=== PATIENT | female | born 1995 | race Caucasian/White ===

== ENCOUNTER 2017-06-30 22:00 | Emergency (ER) | payer MEDICAID, SELFPAY ==
[2017-06-30 22:01] VITALS: BP 146/85; PULSE 127; RESP 16; TEMP 36.6; O2SAT 100; BMI 26.2
--- NOTE | 2017-06-30 22:17 | ED.VISSUMM ---
- ER Visit Summary Date of Service: 06/30/17 Chief Complaint: [] Sore throat History of Present Illness: The patient is a 21 F complaining of sore throat since yesterday. The patient states she has been using symptom management but came in to make sure she did not have strep throat. Current severity is mild to moderate. Physical Examination: [] Vital signs reviewed General: Well-nourished well-developed Head: Normocephalic atraumatic Eyes: Pupils equal round and reactive to light extraocular movements intact ENT: TMs clear no hemotympanum no trauma. Pharynx shows very mild erythema. Tonsils have been resected Neck: Nontender full range of motion Cardiovascular: Regular rate rhythm no murmurs normal S1-S2 Respiratory: No distress clear to auscultation bilaterally chest nontender Abdomen: Soft nontender nondistended normal bowel sounds no masses Back: Nontender no CVA tenderness Extremities: Nontender active range of motion ?4 extremities no trauma Skin: Normal color no trauma Neuro alert oriented cranial nerves II through XII intact normal strength sensation reflexes Test Results: [] Emergency Department Course and Treatment: [] Given ibuprofen. Rapid strep positive. Given amoxicillin. We will continue course at home. Treatment Plan: [] Disposition: [] Impression: [] Strep pharyngitis This note was generated with [employer] dictation software. It may contain incorrect words, spelling, and punctuation that were not noted in review of the chart prior to signing ED Disposition - Plan for ED Patient: Chief Complaint: Sore Throat Referrals: Care Physician,No Primary [Primary Care Provider] -
[2017-06-30] MEDS: Ibuprofen 400 MG Tablet 800 MG PO (22:25)
--- NOTE | 2017-06-30 22:45 | ED.DEP ---
ED Disposition - Plan for ED Patient: Disposition: Home or Assisted Living Chief Complaint: Sore Throat Instructions: ED Strep Pharyngitis Conf Prescriptions: Amoxicillin 500 mg PO TID #30 tab Referrals: Care Physician,No Primary [Primary Care Provider] - Anthony Hidalgo DO [NON CLINICAL AFFILIATE] -
[2017-06-30] MEDS: AMOXICILLIN 500 MG CAPSULE PO (22:50)
--- NOTE | 2017-06-30 22:53 | ED.RN ---
DISCHARGE INSTRUCTIONS GIVEN TO AND REVIEWED WITH PATIENT, PATIENT DENIES QUESTIONS OR CONCERNS AND VOICES UNDERSTANDING OF DISCHARGE INSTRUCTIONS. PT AMBULATES OUT OF ROOM WITHOUT DIFFICULTY.
== END 2017-06-30 22:54 | disposition home or self-care (01) ==
PROVIDERS: Emergency Provider Emergency Medicine
DX: J02.0 Streptococcal pharyngitis (principal)
CPT/HCPCS: 87077; 87880; 99283

== ENCOUNTER → 2017-10-27 21:50 | Outpatient (CLI) | payer MEDICAID, SELFPAY ==
[2017-10-31 10:29] LABS: HPV Reflexed? NOT INDICATED
== END ==
PROVIDERS: Visit Provider Obstetrics & Gynecology
DX: Z12.4 Encounter for screening for malignant neoplasm of cervix (principal)
CPT/HCPCS: 88175; G0145

== ENCOUNTER → 2018-03-10 13:34 | Outpatient (CLI) | payer MEDICAID, SELFPAY ==
--- NOTE | 2018-03-10 13:38 | US_ITS ---
STUDY: ULTRASOUND BREAST - LEFT REASON FOR EXAM: Female, 22 years old. Pain in the left breast. TECHNIQUE: Axial and longitudinal images of the LEFT breast were performed with a high resolution ultrasound transducer. COMPARISON: None. FINDINGS: LEFT Breast: The inferior aspect of the left breast was examined by ultrasound. There is homogeneous fibroglandular tissue. No solid or cystic mass lesion is seen. US/Breast Limited Unilateral IMPRESSION: Unremarkable sonographic examination of the inferior aspect of the left breast. ASSESSMENT CATEGORY: BIRADS Category 1: Negative. A letter regarding these results will be sent to the patient by the facility within 30 days. Electronically Signed: Tolu De La Paz MD at 14:27 EST Tel [phone], Service support ,
== END ==
PROVIDERS: Visit Provider Obstetrics & Gynecology
DX: N64.4 Mastodynia (principal)
CPT/HCPCS: 76642

== ENCOUNTER → 2018-09-09 | Outpatient (CLI) | payer MEDICAID, SELFPAY ==
[2018-09-09 19:09] LABS: Chlamydia Trachomatis by PCR Negative (Negative); Neisserai gonorrhoeae by PCR Negative (Negative); Probe Check PASS; Sample Adequacy Control PASS; Specimen Processing Control PASS
== END | disposition home or self-care (01) ==
LOC: LABSPEC 15:04
PROVIDERS: Visit Provider Obstetrics & Gynecology
DX: Z11.3 Encounter for screening for infections with a predominantly sexual mode of transmission (principal)
CPT/HCPCS: 87491; 87591

== ENCOUNTER → 2018-10-11 | Outpatient (CLI) | payer MEDICAID, SELFPAY ==
[2018-10-11 13:21] LABS: Color, Urine Yellow (Yellow); Glucose, Dipstick Normal (Normal); Ketone-Dipstick Negative (Negative); Leukocyte Esterase-Dipstick Negative /ul (Negative); Nitrite-Dipstick Negative (Negative); Occult Blood-Urine Negative /ul (Negative); Protein-Dipstick Negative (Negative); Urine Bilirubin Dipstick Negative (Negative); Urine Clarity Clear (Clear); Urine Urobilinogen Normal (Normal)
[2018-10-11 13:34] LABS: Amphetamine Urine VISTA NEGATIVE (<1000 ng/mL); Barbiturate Urine VISTA NEGATIVE (< 200 ng/mL); Benzodiazepine Urine VISTA NEGATIVE (< 200 ng/mL); Cocaine Urine VISTA NEGATIVE (< 300 ng/mL); Ecstacy Urine VISTA NEGATIVE (< 500 ng/mL); Methadone Urine VISTA NEGATIVE (< 300 ng/mL); PCP Urine VISTA NEGATIVE (< 25 ng/mL); THC Urine VISTA POSITIVE (< 50 ng/mL); Vista UDS pH Range 6
[2018-10-11 16:26] LABS: Absolute Lymphocyte Count 2.05 X10^3/ul (0.83-4.51); Absolute Neutrophil Count 3.1 X10^3/uL (2.0-7.7); Basophil# 0.01 X10^3/uL; Basophil% 0.2 % (0-1); Eosinophil# 0.24 X10^3/uL; Eosinophils% 4.1 % (0-5); Hematocrit 43.7 % (37-47); Hemoglobin 14.6 g/dl (12.0-15.0); Lymphocyte # 2.05 X10^3/ul (4.0); Lymphocyte % 35.2 % (19-41); Mean Corp Hgb Conc 33.4 g/gl (32-36); Mean Corpuscular Volume 83.7 fL (81-99); Mean Platelet Vol. 10.8 fl (6.2-12.0); Monocyte# 0.47 X10^3/uL; Monocyte% 8.1 % (0-10); Neutrophil # 3.05 X10^3/uL (2.7-7.7); Neutrophil % 52.2 % (47-70); Platelet Count 208 K/mm3 (150-450); RBC Distribution Width CV 12.7 % (11.6-14.6); RBC Distribution Width SD 38.4 fl (35.1-43.9); Red Blood Count 5.22 M/mm3 (4.2-5.4); White Blood Count 5.8 K/mm3 (4.4-11.0)
[2018-10-11 16:28] LABS: POSITIVE COUNT NO; POSITIVE DIFFERENTIAL NO; POSITIVE MORPHOLOGY NO
[2018-10-11 17:38] LABS: Free T3 2.7 pg/mL (2.18-3.98); T4 Free Direct 1.05 ng/dL (0.76-1.46)
[2018-10-12 09:37] LABS: HIV - WCH Non-Reactive (Nonreactive); Hepatitis B Surface Antigen Non-Reactive (Nonreactive); Hepatitis C Antibody Non-Reactive (Nonreactive)
[2018-10-15 02:57] LABS: Prenatal RPR NONREACTIVE (NONREACTIVE)
== END | disposition home or self-care (01) ==
LOC: WOBLAB 11:36
PROVIDERS: Visit Provider Obstetrics & Gynecology
DX: O28.8 Other abnormal findings on antenatal screening of mother (principal); R94.6 Abnormal results of thyroid function studies; Z3A.00 Weeks of gestation of pregnancy not specified
CPT/HCPCS: 36415; 80307; 81002; 84439; 84443; 84481; 85025; 86703; 86762; 86803; 87340

== ENCOUNTER 2018-12-11 16:56 | Emergency (ER) | payer MEDICAID, SELFPAY ==
[2018-12-11 16:58] VITALS: BP 127/66; PULSE 96; RESP 22; TEMP 36.2; O2SAT 98; BMI 28.9
[2018-12-11 17:04] VITALS: O2SAT 98
[2018-12-11 18:30] VITALS: PULSE 92; RESP 18
[2018-12-11] MEDS: Albuterol 2.5 MG/3 ML VIAL.NEB. INHALATION (18:32)
--- NOTE | 2018-12-11 18:40 | RAD_ITS ---
STUDY: X-RAY CHEST REASON FOR EXAM: Female, 23 years old. Cough and shortness of breath, TECHNIQUE: PA and lateral views of the chest. Patient was shielded. COMPARISON: None. FINDINGS: The lungs are clear and expanded. There is no demonstrated pleural abnormality. Normal size heart. Normal mediastinum and ángel. Normal visualized pulmonary arteries. Normal visualized aortic arch and descending thoracic aorta. Normal visualized thoracic spine. Normal visualized ribs, clavicles, and shoulders. There is no demonstrated abnormality of the visualized soft tissue structures of the upper abdomen. RAD/Chest PA and Lateral IMPRESSION: Normal x-ray examination of the chest. Electronically Signed: Matthew Driver MD ([place]) at 18:54 EDT , Service support ,
[2018-12-11 19:48] VITALS: BP 118/60; PULSE 89; RESP 14; O2SAT 98
--- NOTE | 2018-12-11 20:30 | ED.DCSUM_ITS ---
- ER Visit Summary Date of Service: 12/11/18 Chief Complaint: Cough History of Present Illness: The patient is a 23 F who presents with a cough that is been getting worse over the past 4 days. Patient states she has sharp burning pain in her chest with coughing. Patient states she has had some nasal congestion and headache. Patient states she has been having some nausea and vomiting. Patient denies any sputum production. Patient states she does get short of breath after coughing episode. Patient states this resolves after a few minutes. Patient is approximately 20 weeks . Physical Examination: Vital signs are stable. Patient is afebrile. Patient is in no acute distress. Oral mucosa is pink and moist. Neck is supple. Trachea is midline. There is no JVD noted. Heart was regular rate and rhythm. Lungs are slightly diminished bilaterally. Abdomen is soft and nontender. Cranial nerves II through XII are intact. There are no focal motor or sensory deficits noted. Test Results: PA and lateral chest x-ray was obtained. There is no acute infiltrate noted. This was interpreted by the radiologist myself. Emergency Department Course and Treatment: Patient was given an albuterol aerosol here. Patient felt better on reevaluation. Patient was given a prescription for an albuterol inhaler. Patient was instructed to follow-up with her primary care physician and [facility] in 5 to 7 days. Patient understood and was agreeable with the plan. All questions were answered. Disposition: Discharge home Impression: Viral upper respiratory infection This note was generated with [employer] dictation software. It may contain incorrect words, spelling, and punctuation that were not noted in review of the chart prior to signing ED Disposition - Plan for ED Patient: Disposition: Home or Assisted Living Diagnosis: Viral upper respiratory infection Instructions: URI, Viral, No Abx (Adult) Prescriptions: Albuterol Inhaler [Ventolin Hfa] 2 puff INHALATION Q4H PRN PRN #1 inhaler PRN Reason: Wheezing Prescription Printed Referrals: Care Physician,No Primary [Primary Care Provider] - Keep [facility] appointment
[2018-12-11 20:46] VITALS: BP 129/67; PULSE 71; RESP 18; O2SAT 98
== END 2018-12-11 20:46 | disposition home or self-care (01) ==
PROVIDERS: Emergency Provider Emergency Medicine
DX: O99.512 Diseases of the respiratory system complicating pregnancy, second trimester (principal); J06.9 Acute upper respiratory infection, unspecified; Z3A.20 20 weeks gestation of pregnancy; Z87.891 Personal history of nicotine dependence
CPT/HCPCS: 71046; 94640; 99282

== ENCOUNTER 2018-12-15 10:30 | Outpatient (RCR) | payer MEDICAID, SELFPAY ==
--- NOTE | 2018-12-08 10:50 | HP.PTEVAL ---
Patient's Visit Information GARRETT BARDALES is a 23 year old F referred to Physical Therapy by Keely Driscoll MD with a diagnosis of Sciatica. Date of Evaluation: 12/08/18 Physical Therapist: Tsering Sheridan DPT - Visit Plan Frequency: 2x /Week Duration: 4 Weeks Plan: 12/08/18 Aquatics - Focus on general core/B LE strengthening. Distraction may decrease s/s but caution regaining WB - Subjective Findings: Has had back pain for years prior to having children. 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 Chiro says that her discs are rotated. She stopped seeing him and was just using heating pads. Is having her 3rd- 1st little to no pain- 2nd was horrible and 3rd is even worse. She is currently 19.5 weeks . 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 Work has been good with working with her lifting restrictions. Thursday at work she was just standing and turned about 45 degrees- left leg went numb and the leg locked out and buckled under her. Was able to catch herself and did not fall all the way to the floor. Ice helped- about 5 min it went tingly and then returned to normal. Later in the day she was walking and everytime she stepped on her left foot it felt horrible. Called off work yesterday due to pain. Normal shifts are about 8 hours long- 6p-2a- standing for her shift- sits maybe an hour. Its progressively getting worse as her continues. Is not wearing a back brace at work. Wears regular tennis shoes- no inserts. Pain is located in the left paraspinals- radiates to the bottom of her butt- then shoots down the ankle. Reports pain feels tingling and stabbing. Tingling is always there but the pain comes and goes. Worst: 9/10 Agg: turning Best: 0/10 Eases: heating pads and ice. Sleep: not disturbed- side sleeper but usually a belly sleeper. No x-rays or MRI of her back since she has had kids. Is not seeing chiro or massirish. PMHx: none Meds: prenatals. Anatomy Ultrasound- no reason to think high risk. Both kids vaginal- carried full term . - Objective Posture: FH, RS - was corrected w/ V/C, unable to maintain. Gait: Increased stance time on right. Palpation: tender with pa glides to lumber spine, left lumbar paraspinals and into the gluts on the left. ROM: L/S WFL, pain w/ L SB & L Rot. Mild increase in pain with extension pinching. Sensation/Reflexes: WNL. Strength: Core: poor, Left hip: 4-/5 right hip: 4+/5, Knee: 5/5 bilateral Ankle: 5/5. SLS: left: 3 sec increased muscle activation and UE movements. Right: 15 seconds no LOB. HR/TR: able no deficits. Flexibility: HS severe on left, Quad: mild restriction. Special Test: dural signs: left positive, Slump: positive on left, Squish Test: increased pain on left. - Goals Goal 1:: Pt. will be I w/ HEP & progression Goal Time Frame: 4-6 Weeks Goal 2:: Pt. will return to work activities w/ a pain level of 0/10 Goal Time Frame: 4-6 Weeks Goal 3:: pt. will be able to lift kids w/ proper body mechanics and pain level of 0/10 Goal Time Frame: 4-6 Weeks Goal 4:: Patient will maintain proper posture t/o tx session to demo increased core s/s Goal Time Frame: 4-6 Weeks - Rehabilitation Potential Physical Therapy Diagnosis: Presents w/ hypomobility, decreased strength & core s/s, & muscular endurance leading to increased pain w/ ADL's. Rehabilitation Potential: Fair - Anticipated Interventions Patient/Client Instruction: Educate patient on: Condition, Plan of Care For the Purpose of:: To decrease pain Therapeutic Exercise to Include: Strength training, Endurance training, Balance training, Body mechanics, Postural training, Gait and locomotor training, In an aquatic setting, Dynamic Lumbar Stabilization For the Purpose of:: To improve muscle performance and motor function TENS: No Ultrasound (thermal/non thermal): No Thank you for the opportunity to evaluate your patient. For Medicare and Medicare HMO plans, please review the plan of care and approve it. It will need to be FAXED BACK to us at [phone] for Medicare purposes. For Medicare only, by signing this I certify the plan of care. Please let me know if there are questions or concerns regarding this plan of care. Physician Signature: Date:
--- NOTE | 2018-12-27 07:47 | HP.PTDCNRP_ITS ---
HP - Discharge Summary (1) - Patient Information GARRETT BARDALES was seen in my office for initial evaluation on 12/08/18. The following Plan of Care was established for this patient: Initial Frequency: 2x /Week Initial Duration: 4 Weeks - Anticipated Interventions Patient/Client Instruction: Educate patient on: Condition, Plan of Care For the Purpose of:: To decrease pain Therapeutic Exercise to Include: Strength training, Endurance training, Balance training, Body mechanics, Postural training, Gait and locomotor training, In an aquatic setting, Dynamic Lumbar Stabilization For the Purpose of:: To improve muscle performance and motor function TENS: No Ultrasound (thermal/non thermal): No This patient was last seen in our office . Pertinent comments regarding their Physical therapy will appear below: Patient reports that her water broke and she is now working with a high risk s pecialist in [place]- appropriate to be d/c at this time. At this point I will be discontinuing this patient from physical therapy. I would be happy to see this patient again in the future if found appropriate by the physician. Thank you! SHANNON MartinezT
== END 2018-12-15 19:00 | disposition home or self-care (01) ==
LOC: PT 10:30
PROVIDERS: Referring Provider Obstetrics & Gynecology; Visit Provider Obstetrics & Gynecology
DX: O26.892 Other specified pregnancy related conditions, second trimester (principal)
CPT/HCPCS: 97113; 97161

== ENCOUNTER 2018-12-20 23:53 | Outpatient (CLI) | payer MEDICAID, SELFPAY ==
[2018-12-21 01:15] VITALS: BMI 30.1
[2018-12-21] MEDS: Lactated Ringers 1,000 ML 50 ML IV (01:15)
[2018-12-21 01:34] LABS: Absolute Lymphocyte Count 2.66 X10^3/uL (0.83-4.51); Absolute Neutrophil Count 11.6 X10^3/uL (2.0-7.7); Basophil# 0.05 X10^3/uL; Basophil% 0.3 % (0-1); Eosinophil# 0.32 X10^3/uL; Hematocrit 36.2 % (37-47); Hemoglobin 12.3 g/dL (12.0-15.0); Lymphocyte # 2.66 X10^3/ul (4.0); Lymphocyte % 16.7 % (19-41); Mean Corpuscular Hgb 29.9 pg (27.0-32.0); Mean Corpuscular Volume 88.1 fL (81-99); Mean Platelet Vol. 10.3 fl (6.2-12.0); Monocyte# 1.07 X10^3/uL; Monocyte% 6.7 % (0-10); NRBC Flagged by Analyzer 0 % (0-5); Neutrophil % 72.9 % (47-70); Platelet Count 194 K/mm3 (150-450); RBC Distribution Width CV 12.4 % (11.6-14.6); RBC Distribution Width SD 39.6 fl (35.1-43.9); Red Blood Count 4.11 M/mm3 (4.2-5.4); White Blood Count 15.9 K/mm3 (4.4-11.0)
--- NOTE | 2018-12-21 05:07 | PCM.HP.BLA ---
History and Physical Date of Admission: 12/21/18 [facility] [place] - H[place]ORY AND PHYSICAL (12/21/2018) History of This : This is a 23-year-old 3 para 2 who presents to labor and delivery this evening with gross rupture of membranes at 21 weeks and 1 day gestation by early ultrasound. This is confirmed by bedside ultrasound. heart tones are present and baby is in breech transverse position. care has been remarkable for extremely heavy smoking earlier in and marijuana use. OB Physician: PAYTON 's Physician: Chato Leach ...................................................................... : 1995 Age: 23 Address: [address] [place] [address] Phone: (h) [phone] ([phone] Insurance Carrier: [employer] CLAIMS DEPT [id number] Emergency Contact: JANE BECERRA [phone] ...................................................................... Final KAILA: 05/02/19 By Ultrasound: PARITY: (G-Total Pregnancies P-Fullterm,Premature,Induced AB,Spont AB, Ectopics, Multiple,Living) KAILA CONFIRMATION: By LMP: 07/26/18 Final KAILA: 05/02/19 BLOOD TYPE: AFP: 1 HR PG: GBS: Original Ordering Provider: Keely Floyd titer (>10 immune)-- Hepatatis B cain AG-- CULTURES:-- OB PROBLEM LIST: Admits to marijuana use, states stopped with knowledge of Declines MSAFP and CF testing Interested in MaterniT, info provided. Hx of depression/Seasonal Affective Disorder LATEX ALLERGY Office or WIC class encouraged Recent upper/lower dentures Smoker, has cut down from 1 ppd to 3 cigs/day; ATQ TOX SCREEN POSITIVE POSITIVE MARIJUANA TSH suppressed Free T3 and free T4 -- WNL ALLERGIES: latex latex Swelling Latex Swelling (localized) NKDA MEDICATIONS: DHA 200 mg capsule daily Zofran 4 mg tablet 1 po q 6 hr prn N/V SOCIAL HISTORY: Smoking - Smokes--advised to quit and 1/2PPD Alcohol Use - socially Diet - balanced Diet and Mt Dew 2 x day. Lifestyle - moderate stress lifestyle Exercise - minimal and active at work. Employer - [employer] Job Description - food and nutrition supervisor Illicit Drug Use - used marijuana but stopped with Sexual Activity - and [employer] Residence - lives with Place of - [place], [place] Hours Worked - 40 hours per week Spouse-Sig Other Name - Vishnu Lee Teresita Spouse-Sig Other Occupation - [employer] Spouse-Sig Other Phone No - [phone] Children Name(s) - Leeann Winters '16 PRIOR DELIVERY HISTORY DEL DATE GEST LAB WT LB WT OZ TYPE ANES LABOR TX August 18 40 12 7 1 Vag Epidural No 30 Mar 16 40 9 8 8 Vag Epidural No ANTEPARTUM FLOW CHART VISIT GE RTC FU F F ND U U DATE WK MD WKS HT PN HR M SS BP ED WT ND GL D EF ST __ ____ ___ __ __ ___ __ __ __ ___ __ __ __ ___ __ 09 Dec 24 ELB 4 - V U+ + 128/66 0 165 tr - Nov 18 ELB 4 15 + 122/64 0 157 - - Oct 14 ELB 4 - - U+ O 110/56 152 ANTEPARTUM NOTE(S): Dec 13 2018: Comp u/s today, Allergies, URI, Sciatic pain Nov 08 2018: Oct 11 2018: Nausea- Zofran helpful COMPREHENSIVE ANTEPARTUM NOTE(S): Dec 13 2018: Megan is here for visit. Reports in PT for sciatica. Not being very complaint with exercises. Had URI/Allergies and went to ER. Got breathing tx and inhaler. Encouraged to be compliant with exercises. LMT Nov 08 2018: Megan is doing well. She has felt some FM now and then. Voicing no concerns. kbm Nov 08 2018: Reviewed NOB labs. Cell free DNA normal. Finding out gender soon at a gender reveal alliance party. EB Oct 15 2018: Called in to triage wanting to have MaterniT testing done. NOT AMA and not at inc risk of any aneuploidy. Wanting gender. Advised by phone of the [facility] testing OTC . Recommended that as much less expensive test. Not likely her insurance ([employer]) to cover the MaterniT. EB Oct 12 2018: RUBELLA IMMUNE EB Oct 11 2018: NOB sono NOB nurse and PNV today. Hgb 14.6 g/dl. Positive marijuana on tox. TSH suppressed. Add free T3 and frree T4 EB Oct 11 2018: Garrett is here for her NOB visit at 11 w 0 d, she is a with an KAILA of 05/02/2019. She and , Vishnu, reside with their son and daughter. Past history updated. Delivery at [facility] is planned with an epidural, and she would like to breastfeed. Office or WIC class suggested. She is an established pt and is familiar with office practice patterns, including labs that will be collected today. Emergencies/danger signs to report, contacting the office after hours, round ligament pain, reporting s/s of a UTI, and common OTC medications approved/not approved for use during . Garrett states that she is still smoking, but wants to quit and has cut down from 1 ppd to 3 cigs/day. She admits to marijuana use until knowledge of , advised no more. Use of ETOH denied. She takes an OTC vitamin that contains DHA and states that she tolerates this well. Genetic Screening form completed. She declines MSAFP and CF testing, consent signed as such. She is interested in cfDNA testing to check gender; advised that without any risk factors she may have a higher OOP expense for this, and information for MaterniT testing and how to check OOP expense provided; she will advise staff of her decision. States daily nausea, and dry heaves, and that Zofran is effective for same. Reviewed other measures that may help minimize nausea, including small frequent meals with protein included throughout the day and adequate water hydration of at least one gallon per 24 hours. Garrett has active work and tries to take walks. Kegel exercises, physical activity recommendation, and lifting restrictions reviewed. dietary and water needs reinforced, including recommended weight gain, caloric needs, limiting empty calories, and limiting caffiene to one cup a day. Printed guide for food safety provided with review. Garrett states that she understands all information provided during NOB visit, and she has no questions following same. To [facility] draw station for labs. AW New Sep 10 2018: GC and chlamydia NEG. EB Sep 09 2018: Garrett is being seen for missed menses. G 3 P 2. UPT in office positive. LMP 07-26-18. Pt is about 6 weeks 3 days. KAILA 05-02-19. Pt is taking . Medications and allergies are up to date. Cultures today, pap in 2018 WNL. information reviewed. Pt kwould like something for nausea, she has tried tumes and rachid but does not seem to be helping. AM Mar 10 2018: Here for evaluation after phone call to triage on 03/09/18 13:22 MESSAGE: Called asking for appt for L breast indentation. She just noticed. Mar 10 2018: PT is a 22 yo female, G-2 P-2 here today for a work in appt due to pt found a breast indentation in her left breast. PT states she has been having pain in that breast for about a week and then yesterday she found a spot that is indented under left breast. dg REVIEW OF SYSTEMS: GENERAL - Denies fever, or chills SKIN - Denies rash, new skin lesions, or change in moles EYES - Denies blurred vision, or change in visual acuity EARS - Denies ear pain, or difficulty hearing NOSE - Denies nasal congestion, discharge, or bleeding MOUTH - Denies sore throat, or difficulty swallowing NECK - Denies pain or swelling RESPIRATORY - Denies shortness of breath, cough, wheezing CARDIOVASCULAR - Denies palpitations, chest pain, orthopnea, PND, peripheral edema, syncope or claudication GASTROINTESTINAL - Denies nausea, vomiting, diarrhea, constipation, Denies abdominal pain, melena and or bright red blood GENITOURINARY - Denies dysuria, frequency of urination, urgency, or hesitancy MUSCULOSKELETAL - Denies joint or muscle pain, or back pain NEUROLOGICAL - Denies localized numbness, weakness, or tingling PSYCHIATRIC - Denies depression, anxiety, substance abuse or suicide attempts ENDOCRINE - Denies heat or cold intolerance, weight loss or gain, increasing thirst HEMATO-IMMUNOLOGIC - Denies easy bruising, bleeding, oral ulcerations or recurrent infections GENETICS SCREENING: Age 35+ years: No Thalassemia: No Neural Tube Defect: No Down Syndrome: No NANCY-SACHS: No Sickle Cell Disease: No Hemophilia: No Musc. Dystrophy: No Cystic Fibrosis: No-declines screening [place] Chorea: No Mental Retardation: No Fragile X: No Other genetic: No Other defects: No SABs/still births: No Drugs since LMP: Yes INFECTION HISTORY: High risk AIDS: No High risk Hepatitis: No Exposed to TB: No Exposed to Herpes: No Rash/viral illness since LMP: No History of STD: No MENSTRUAL HISTORY: *Menses Amount/Duration: 5 daysMenses Regularity: RegularMenarche (Age Onset): 11* PAST SUMMARY: PARITY: 1. Total Pregnancies............ 3 2. Full Term Pregnancies........ 2 3. Premature.................... 0 4. Abortions - Induced.......... 0 5. Abortions - Spontaneous...... 0 6. Ectopics..................... 0 7. Multiple Births.............. 0 8. Living Children.............. 2 PAST #1: Date of :.................. 08/04/14 Gestation Weeks:................ 40 Length of labor(hours):......... 12 Sex:............................ M Weight-lbs:............... 7 Weight-oz:................ 1 Type of Delivery:............... Vag Type of Anesthesia:............. Epidural Place of Delivery:.............. [facility] Treatment of Labor?:.... No Comment: MEC FLUID PAST #2: Date of :.................. 04/04/16 Gestation Weeks:................ 40 Length of labor(hours):......... 9 Sex:............................ F Weight-lbs:............... 8 Weight-oz:................ 8 Type of Delivery:............... Vag Type of Anesthesia:............. Epidural Place of Delivery:.............. [facility] Treatment of Labor?:.... No Comment: IOL PHYSICAL EXAMINATION General Appearence: 23 yo female in no acute distress Vital Signs: AF, VSS Heart: RRR without rubs or gallops Lungs: CTA x 2 Breasts: deferred Abdomen: gravid Pelvis: Cervix: FT-1/50 Presentation: breech Station: -1 to -2 Fetus: Size: AGA Movement: not seen Heart: present Fluid: DARYA approximately 1 cm Labs for : GARRETT BARDALES since 08/05/2018 ORDER DATEIN DESCRIPTION VALUE UNITS RANGE A+ COMMENT TYPE AND SCREEN 12/21/18 Reason for Type AND Screen/Red Cells: Labor [facility]~[address] [place], [address]~ BLOOD TYPE GEL AB POSITIVE N ANTIBODY SCREEN NEGATIVE N CBC W/DIFF, AUTOMATED 12/21/18 NOTE Original Ordering Provider: Holly Ramírez WBC 15.9 K/mm3 4.4-11.0 H RBC 4.11 M/mm3 4.2-5.4 L HGB 12.3 g/dL 12.0-15.0 HCT 36.2 % 37-47 L MCV 88.1 fL 81-99 MCH 29.9 pg 27.0-32.0 MCHC 34.0 g/dL 32-36 RDW CV 12.4 % 11.6-14.6 RDW SD 39.6 fl 35.1-43.9 PLT 194 K/mm3 150-450 MPV 10.3 fl 6.2-12.0 NEUT% 72.9 % 47-70 H LY% 16.7 % 19-41 L MONO% 6.7 % 0-10 EO% 2.0 % 0-5 BASO% 0.3 % 0-1 IM GRAN % 1.400 % 0.0-0.9 H IG% - Immature Granulocytes (promyelocytes, myelocytes and metamyelocytes) > 1% indicates that a LEFT SHIFT is Present. ABSOLUTE NEUT 11.6 X10 3/uL 2.0-7.7 H ABSOLUTE LYMPH 2.66 X10 3/uL 0.83-4.51 NRBC, FLAGGED 0 % 0-5 INITAL EVALUATION (1) - PT 12/08/18 [facility] [address] [place] [address] [address] [place] [address] / REHABILITATION SERVICES INITIAL EVALUATION MR#: [id number] Acct: [id number] Name: GARRETT BARDALES Rep #: [id number] : 1995 23 From: Tsering Sheridan DPT Referring Dr.: Keely Driscoll MD Status: REG RCR Insurance: [facility] SELF PAY INSURANCE Patient's Visit Information GARRETT BARDALES is a 23 year old F referred to Physical Therapy by Keely Driscoll MD with a diagnosis of Sciatica. Date of Evaluation: 12/08/18 Physical Therapist: Tsering Sheridan DPT - Visit Plan Frequency: 2x /Week Duration: 4 Weeks Plan: 12/08/18 Aquatics - Focus on general core/B LE strengthening. Distraction may decrease s/s but caution regaining WB - Subjective Findings: Has had back pain for years prior to having children. 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 Chiro says that her discs are rotated. She stopped seeing him and was just using heating pads. Is having her 3rd- 1st little to no pain- 2nd was horrible and 3rd is even worse. She is currently 19.5 weeks . 2.5 and 4- and she is lifting kids. 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 Work has been good with working with her lifting restrictions. Thursday at work she was just standing and turned about 45 degrees- left leg went numb and the leg locked out and buckled under her. Was able to catch herself and did not fall all the way to the floor. Ice helped- about 5 min it went tingly and then returned to normal. Later in the day she was walking and everytime she stepped on her left foot it felt horrible. Called off work yesterday due to pain. Normal shifts are about 8 hours long- 6p-2a- standing for her shift- sits maybe an hour. Its progressively getting worse as her continues. Is not wearing a back brace at work. Wears regular tennis shoes- no inserts. Pain is located in the left paraspinals- radiates to the bottom of her butt- then shoots down the ankle. Reports pain feels tingling and stabbing. Tingling is always there but the pain comes and goes. Worst: 9/10 Agg: turning Best: 0/10 Eases: heating pads and ice. Sleep: not disturbed- side sleeper but usually a belly sleeper. No x-rays or MRI of her back since she has had kids. Is not seeing petty or luciano. PMHx: none Meds: prenatals. Anatomy Ultrasound- no reason to think high risk. Both kids vaginal- carried full term . - Objective Posture: FH, RS - was corrected w/ V/C, unable to maintain. Gait: Increased stance time on right. Palpation: tender with pa glides to lumber spine, left lumbar paraspinals and into the gluts on the left. ROM: L/S WFL, pain w/ L SB AND L Rot. Mild increase in pain with extension pinching. Sensation/Reflexes: WNL. Strength: Core: poor, Left hip: 4-/5 right hip: 4+/5, Knee: 5/5 bilateral Ankle: 5/5. SLS: left: 3 sec increased muscle activation and UE movements. Right: 15 seconds no LOB. HR/TR: able no deficits. Flexibility: HS severe on left, Quad: mild restriction. Special Test: dural signs: left positive, Slump: positive on left, Squish Test: increased pain on left. - Goals Goal 1:: Pt. will be I w/ HEP AND progression Goal Time Frame: 4-6 Weeks Goal 2:: Pt. will return to work activities w/ a pain level of 0/10 Goal Time Frame: 4-6 Weeks Goal 3:: pt. will be able to lift kids w/ proper body mechanics and pain level of 0/10 Goal Time Frame: 4-6 Weeks Goal 4:: Patient will maintain proper posture t/o tx session to demo increased core s/s Goal Time Frame: 4-6 Weeks - Rehabilitation Potential Physical Therapy Diagnosis: Presents w/ hypomobility, decreased strength AND core s/s, AND muscular endurance leading to increased pain w/ ADL's. Rehabilitation Potential: Fair - Anticipated Interventions Patient/Client Instruction: Educate patient on: Condition, Plan of Care For the Purpose of:: To decrease pain Therapeutic Exercise to Include: Strength training, Endurance training, Balance training, Body mechanics, Postural training, Gait and locomotor training, In an aquatic setting, Dynamic Lumbar Stabilization For the Purpose of:: To improve muscle performance and motor function TENS: No Ultrasound (thermal/non thermal): No Thank you for the opportunity to evaluate your patient. For Medicare and Medicare HMO plans, please review the plan of care and approve it. It will need to be FAXED BACK to us at [phone] for Medicare purposes. For Medicare only, by signing this I certify the plan of care. Please let me know if there are questions or concerns regarding this plan of care. Physician Signature: Date: 12/08/18 1051 CC: No Primary Care Physician; Keely Driscoll MD ELR Signed Reviewed by KEELY [id number] PLUS CORE 10/19/18 CHROMOSOME 21 Negative CHROMOSOME 18 Negative CHROMOSOME 13 Negative INTERPRETATION This specimen showed an expected representation of chromosome 21, 18 and 13 material. Clinical correlation is suggested. Y CHROMOSOME Not Detected Y CHROMOSOME INTERPRETATION Consistent with a female fetus. ADDITIONAL FINDINGS N/A ADD'L FINDINGS INTERPRETATION N/A ADDITIONAL FINDINGS NOTE N/A ACQUISITION MARKETING MANAGER COMMENTS Fraction: 9% APPROVED BY Bobby Gonzalez MD, PhD TEST METHOD Circulating cell-free DNA was purified from the plasma component of maternal blood. The extracted DNA was then converted into a genomic DNA library for aneuploidy analysis of chromosomes 21, 18, and 13 via next generation sequencing.[1] Optional findings based on the test order include sex chromosome aneuploidy (SCA), and enhanced sequencing series (ESS), which will only be reported on as an additional finding when an abnormality is detected. SCA testing includes information on X and Y representation, while ESS testing includes deletions in selected regions (22q, 15q, 11q, 8q, 5p, 4p, 1p) and trisomy of chromosomes 16 and 22. ABOUT THE TEST The MaterniT(R) 21 PLUS laboratory-developed test (LDT) analyzes circulating cell-free DNA from a maternal blood sample. The test is indicated for use in women with increased risk for chromosomal aneuploidy. Validation data on twin pregnancies is limited and the ability of this test to detect aneuploidy in a triplet has not yet been validated. PERFORMANCE The performance characteristics of the MaterniT(R) 21 PLUS laboratory-developed test (LDT) have been determined in a clinical validation study with women at increased risk for chromosomal aneuploidy.[1,2] PERFORMANCE DATA Trisomy 21 Sensitivity: 99.1%; CI: 96.3-99.8% Trisomy 21 Specificity: 99.9%; CI: 99.6-99.9% Trisomy 18 Sensitivity: >99.9%; CI: 92.4-100.0% Trisomy 18 Specificity: 99.6%; CI: 99.2-99.8% Trisomy 13 Sensitivity: 91.7%; CI: 59.7-99.6% Trisomy 13 Specificity: 99.7%; CI: 99.3-99.9% Y Chromosome Accuracy: 99.4%; CI: 99.0-99.6% LIMITATIONS OF THE TEST While the results of these tests are highly accurate, discordant results, including inaccurate sex prediction, may occur due to placental, maternal, or mosaicism or neoplasm; vanishing twin; prior maternal organ transplant; or other causes. Sex chromosomal aneuploidies are not reportable for known multiple gestations. These tests are screening tests and not diagnostic; they do not replace the accuracy and precision of diagnosis with CVS or amniocentesis. A patient with a positive test result should be referred for genetic counseling and offered invasive diagnosis for confirmation of test results.[3] A negative result does not ensure an unaffected nor does it exclude the possibility of other chromosomal abnormalities or defects which are not a part of these tests. An uninformative result may be reported, the causes of which may include, but are not limited to, insufficient sequencing coverage, noise or artifacts in the region, amplification or sequencing bias, or insufficient fraction. These tests are not intended to identify pregnancies at risk for neural tube defects or ventral wall defects. Testing for whole chromosome abnormalities (including sex chromosomes) and for subchromosomal abnormalities could lead to the potential discovery of both and maternal genomic abnormalities that could have major, minor, or no, clinical significance. Evaluating the significance of a positive or a non-reportable result may involve both invasive testing and additional studies on the mother. Such investigations may lead to a diagnosis of maternal chromosomal or subchromosomal abnormalities, which on occasion may be associated with benign or malignant maternal neoplasms. These tests may not accurately identify triploidy, balanced rearrangements, or the precise location of subchromosomal duplications or deletions; these may be detected by diagnosis with CVS or amniocentesis. The ability to report results may be impacted by maternal BMI, maternal weight, maternal systemic lupus erythematosus (SLE) and/or by certain pharmaceutical agents such as low molecular weight heparin (for example: Lovenox(R), Xaparin(R), Clexane(R) and Fragmin(R)). The results of this testing, including the benefits and limitations, should be discussed with a qualified healthcare provider. management decisions, including termination of the , should not be based on the results of these tests alone. The healthcare provider is responsible for the use of this information in the management of their patient. NOTE This test was developed and its performance characteristics determined by [facility]. It has not been cleared or approved by the Food and Drug Administration. This test is used for clinical purposes. It should not be regarded as investigational or for research. This laboratory is certified under the Clinical Laboratory Improvement Amendments (CLIA) as qualified to perform high complexity clinical laboratory testing and accredited by the College [employer] (CAP). This specimen will be saved until term and can be re-sequenced using the more comprehensive screening test, MaterniT(R) GENOME, according to clinical need. [facility] samples will not be retained beyond 60 days. [facility] patients will have to send a new sample for re-sequencing ([facility] Test Code: 990924). REFERENCES 1. Bradford MCGHEE et al. Haily Med. 2012;14(3):296-305. 2. Bradford MCGHEE et al. Haily Med. 2011;13(11):913-920. 3. ACOG/SM Joint Committee Opinion No. 545, Mar 2012. PDF . Reviewed by HOLLY RPR 10/11/18 NOTE Original Ordering Provider: Keely Driscoll RPR NONREACTIVE NONREACTIVE Reviewed by KEELY HEPATITIS C ANTIBODY 10/11/18 NOTE Original Ordering Provider: Keely Driscoll HEPATITIS C AB Non-Reactive Nonreactive Non Reactive: < 0.8 Equivocal: >/= 0.8 to < 1.0 Reactive: >/= 1.0 The CDC recommends that a reactive/equivocal HCV antibody result be followed up by the HCV Nucleic Acid Amplification test (919941) Reviewed by KEELY HEPATITIS B SURFACE ANTIGEN 10/11/18 NOTE Original Ordering Provider: Keely Driscoll HEPB SURFACE AG Non-Reactive Nonreactive Reviewed by KEELY HIV - H 10/11/18 NOTE Original Ordering Provider: Keely Driscoll HIV - [facility] Non-Reactive Nonreactive Reviewed by KEELY RUBELLA IGG 10/11/18 NOTE Original Ordering Provider: Keely Driscoll RUBELLA IGG 12.0 IU/mL Antibody results Interpretation of Immune Status < 5 IU/ml Presumed Non-immune 5 - < 10 IU/ml Equivocal > or = 10 IU/ml Presumed Immune Reviewed by KEELY T4 FREE DIRECT 10/11/18 NOTE Original Ordering Provider: Keely Driscoll T4 FREE DIRECT 1.05 ng/dL 0.76-1.46 Reviewed by KEELY THYROID STIM HORMONE (TSH) 10/11/18 NOTE Original Ordering Provider: Keely Driscoll TSH 0.30 uIU/mL 0.358-3.74 L Reviewed by KEELY FREE T3 10/11/18 NOTE Original Ordering Provider: Keely Driscoll FREE T3 2.7 pg/mL 2.18-3.98 Reviewed by KEELY T AND S-NO CHARGE W/PNP 10/11/18 Reason for Type AND Screen/Red Cells: Surgery? N [facility]~[address] [place], [address]~ BLOOD TYPE GEL AB POSITIVE N AB SCREEN GEL NEGATIVE N Reviewed by KEELY Reviewed by KEELY CBC W/DIFF, AUTOMATED 10/11/18 NOTE Original Ordering Provider: Keely Driscoll WBC 5.8 K/mm3 4.4-11.0 RBC 5.22 M/mm3 4.2-5.4 HGB 14.6 g/dl 12.0-15.0 HCT 43.7 % 37-47 MCV 83.7 fL 81-99 MCH 28.0 pg 27.0-32.0 MCHC 33.4 g/gl 32-36 RDW CV 12.7 % 11.6-14.6 RDW SD 38.4 fl 35.1-43.9 PLT 208 K/mm3 150-450 MPV 10.8 fl 6.2-12.0 NEUT% 52.2 % 47-70 LY% 35.2 % 19-41 MONO% 8.1 % 0-10 EO% 4.1 % 0-5 BASO% 0.2 % 0-1 IM GRAN % 0.200 % 0.0-0.9 IG% - Immature Granulocytes (promyelocytes, myelocytes and metamyelocytes) > 1% indicates that a LEFT SHIFT is Present. ABSOLUTE NEUT 3.1 X10 3/uL 2.0-7.7 ABSOLUTE LYMPH 2.05 X10 3/ul 0.83-4.51 Reviewed by KEELY URINE DRUG SCREEN (VISTA) 10/11/18 NOTE Original Ordering Provider: Keely Driscoll TO BE CONFIRMED CONFIRMATORY TESTING FOR ALL POSITIVE URINE DRUG SCREEN RESULTS WILL ONLY BE SENT OUT UPON PHYSICIAN ORDER. [facility]IST[facility] Urine Drug Screen methods provide only preliminary analytical test results. A more specific alternate chemical method must be used in order to obtain a confirmed analytical result. Gas chromatography/mass spectrometery (GC/MS) is the preferred confirmatory method. Clinical consideration and professional judgement should be applied to any drug of abuse test result, particularly when preliminary positive results are used. URINE TCA TESTING MUST BE ORDERED SEPARATELY. USE TEST MNEMONIC: [facility] UDS PH 6 AMPHETAMINES NEGATIVE <1000 ng/mL BARBITIURATES NEGATIVE < 200 ng/mL BENZODIAZIPINE NEGATIVE < 200 ng/mL COCAINE NEGATIVE < 300 ng/mL ECSTACY NEGATIVE < 500 ng/mL METHADONE NEGATIVE < 300 ng/mL OPIATES NEGATIVE < 300 ng/mL PCP NEGATIVE < 25 ng/mL THC POSITIVE < 50 ng/mL H Reviewed by KEELY Reviewed by KEELY URINALYSIS, ROUTINE (DIPSTICK) 10/11/18 NOTE Original Ordering Provider: Keely Driscoll COLOR Yellow Yellow CLARITY Clear Clear GLUCOSE, UR Normal mg/dl Normal BILIRUBIN URINE Negative mg/dL Negative KETONE UR Negative mg/dl Negative SP.GR. DIPSTX 1.010 1.002-1.030 PH UR 7.0 5.0 - 8.0 PROT DIPSTX Negative mg/dl Negative UROBILI Normal mg/dl Normal NITRITE UR Negative Negative OCCULT BLOOD-UR Negative /ul Negative LEUK ESTERASE Negative /ul Negative Reviewed by KEELY Reviewed by KEELY CT/LE[facility]ANNE [facility] BY PCR 09/09/18 NOTE Original Ordering Provider: Keely Driscoll [facility] PCR Negative Negative NG BY PCR Negative Negative Reviewed by KEELY Impression /Plan: 21-week 1 day intrauterine with gross rupture of membranes. We have discussed at length the grave nature of the situation. We have discussed the possibility of severe infection resulting in maternal , pulmonary hypoplasia and the likelihood of spontaneous labor over the next 1 to 2 days. Patient and family request everything be done that is possible. Will discuss with maternal- medicine. After discussion with Dr. Astorga from maternal- medicine, she recommend starting the patient on amoxicillin 500 mg 3 times daily and azithromycin 500 mg daily. She also recommended discharging the patient to home monitoring fever and bleeding. She or her colleagues will see the patient later today at their office.
[2018-12-21] MEDS: Azithromycin 250 MG Tablet 500 MG PO (06:58)
[2018-12-21] MEDS: AMOXICILLIN 500 MG CAPSULE PO (06:58)
== END 2018-12-21 07:15 | disposition home or self-care (01) ==
LOC: WPOUT 12-21 13:18 → WP 12-22 08:37
PROVIDERS: Visit Provider Obstetrics & Gynecology
DX: O42.912 Preterm premature rupture of membranes, unspecified as to length of time between rupture and onset of labor, second trimester (principal); Z3A.21 21 weeks gestation of pregnancy
CPT/HCPCS: 96360; 96361; 59050; 76815; 85025; 86850; 86900; 86901; J7120

== ENCOUNTER → 2018-12-23 | Outpatient (CLI) | payer MEDICAID, SELFPAY ==
[2018-12-21 01:15] VITALS: BMI 30.1
[2018-12-23 14:17] LABS: Hematocrit 36.8 % (37-47); Hemoglobin 12.3 g/dL (12.0-15.0); Mean Corp Hgb Conc 33.4 g/dL (32-36); Mean Corpuscular Hgb 29.6 pg (27.0-32.0); Mean Corpuscular Volume 88.5 fL (81-99); Mean Platelet Vol. 10.9 fl (6.2-12.0); Platelet Count 203 K/mm3 (150-450); RBC Distribution Width CV 12.5 % (11.6-14.6); RBC Distribution Width SD 40.7 fl (35.1-43.9); Red Blood Count 4.16 M/mm3 (4.2-5.4); White Blood Count 14.5 K/mm3 (4.4-11.0)
== END | disposition home or self-care (01) ==
LOC: LAB 12:26
PROVIDERS: Referring Provider Obstetrics & Gynecology; Visit Provider Obstetrics & Gynecology
DX: O42.90 Premature rupture of membranes, unspecified as to length of time between rupture and onset of labor, unspecified weeks of gestation (principal); Z3A.00 Weeks of gestation of pregnancy not specified
CPT/HCPCS: 36415; 85027

== ENCOUNTER → 2021-01-16 13:36 | Outpatient (CLI) | payer MEDICAID, SELFPAY ==
[2021-01-18 22:06] LABS: Chlamydia By Nucleic Acid AMP Negative (Negative)
[2021-01-18 22:39] LABS: Gonococcus By Nucleic Acid AMP Negative (Negative)
[2021-01-21 15:38] LABS: HPV Reflexed? NOT INDICATED
== END ==
PROVIDERS: Visit Provider Obstetrics & Gynecology
DX: Z12.4 Encounter for screening for malignant neoplasm of cervix (principal); Z11.3 Encounter for screening for infections with a predominantly sexual mode of transmission
CPT/HCPCS: 87491; 87591; 88175; G0145